=== PATIENT | male | born 1945 | race Caucasian/White ===

== ENCOUNTER 2019-05-11 16:32 | Inpatient (IN) ==
[2019-05-11 17:12] LABS: BASO# 0.02 X1000 (0.0-0.2); BASO% 0.1 % (0.0-0.8); EOS# 0.11 X1000 (0.0-0.7); EOS% 0.7 % (0.0-10.0); HEMATOCRIT 45.6 % (42.0-52.0); HEMOGLOBIN 15.3 g/dL (14.0-18.0); IMM GRAN# 0.03 X1000 (0.0-0.04); IMM GRAN% 0.2 % (0.0-0.5); LYMPH# 1.51 X1000 (1.2-3.4); LYMPH% 9.3 % (20.5-51.1); MCH 32.4 PG (27-31); MCHC 33.6 g/dL (33-37); MCV 96.6 FL (81-99); MONO% 6.8 % (1.7-9.3); MPV 9.6 FL (7.4-10.4); NEUT# 13.44 X1000 (1.4-6.5); NEUT% 82.9 % (42.2-75.2); PLT 268 X1000 (130-400); RBC 4.72 XMIL (4.7-6.1); RDW 12.8 % (11.5-14.5); WBC 16.21 X1000 (4.8-10.8)
[2019-05-11 17:18] LABS: INR 1.11; PROTIME 14.5 Seconds (11.0-16.0)
[2019-05-11 17:19] LABS: PTT 32.2 Seconds (22.3-41.8)
[2019-05-11 17:24] LABS: BANDS 2 % (0-1); LYMPHS 14 % (21-51); SEGS 84 % (42-75)
[2019-05-11 17:33] LABS: AGAP 15; ALB/GLOB RATIO 1.4; ALBUMIN 3.7 g/dL (3.5-5.0); ALKALINE PHOSPHATASE 76 U/L (32-122); BUN 10 mg/dL (8-22); CHLORIDE 97 mmol/L (98-107); CK PROFILE 55 U/L (24-204); COSMO 277; CREATININE 0.7 mg/dL (0.7-1.2); ESTIMATED GFR > 60; GLUCOSE 138 mg/dL (70-104); GOT 16 U/L (10-34); GPT 18 U/L (10-44); POTASSIUM 4.4 mmol/L (3.5-5.1); SODIUM 138 mmol/L (136-145); TCO2 26 mmol/L (25-35); TOTAL BILIRUBIN 0.75 mg/dL (0.20-1.00); TOTAL PROTEIN 6.4 g/dL (6.3-8.3)
[2019-05-11 17:39] LABS: URINE SOURCE CLEAN CATCH
[2019-05-11 17:45] LABS: BILIRUBIN URINE NEGATIVE (NEGATIVE); BLOOD URINE NEGATIVE (NEGATIVE); CLARITY CLEAR (CLEAR); COLOR YELLOW; GLUCOSE URINE NEGATIVE (NEGATIVE); KETONE URINE NEGATIVE (NEGATIVE); LEUKOCYTES URINE NEGATIVE (NEGATIVE); NITRITE URINE NEGATIVE (NEGATIVE); PROTEIN URINE 100 mg/dL (NEGATIVE); SP GRAVITY URINE >= 1.030; URINE EPITHELIAL CELLS <10 /HPF (<10); URINE RBC <10 /HPF (<10); URINE WBC <10 /HPF (<10)
--- NOTE | 2019-05-11 18:17 | Diag Imaging Result Doc PS360 ---
EXAM: CHEST-1 VIEW INDICATION: SOB TECHNIQUE: 2 views COMPARISON: 11/03/2017 FINDINGS: There is suggestion of COPD. There is chronic appearing interstitial thickening bilaterally that is stable. The lungs are grossly clear, otherwise. There is no discrete pleural fluid collection or pneumothorax. The cardiomediastinal silhouette and central vasculature are grossly unremarkable. IMPRESSION: Suggestion of COPD and chronic interstitial thickening that is stable. No definite acute pathology by plain radiograph. Electronically signed by Andrae Pizarro 05/11/2019 6:15 PM
[2019-05-11] MEDS ORDERED: DUONEB (A & A) INH ONE (19:09)
[2019-05-11] MEDS ORDERED: SOLU-MEDROL IV ONE (19:09)
--- NOTE | 2019-05-11 19:29 | PROVIDER DOCUMENTATION ---
HPI-Respiratory General - General Chief Complaint: SEPSIS ALERT - D Stated Complaint: SOB,COPD Time Seen by Provider: 05/11/19 18:38 Source: patient, family Allergies/Adverse Reactions: Patient Allergies Allergy/AdvReac Type Severity Reaction Status Date / Time No Known Allergies Allergy Verified 05/11/19 17:17 Home Medications: Home Medication List Medication Instructions Recorded Confirmed Last Taken Type Alprazolam [Xanax] 1 tab PO PRN PRN 05/11/19 05/11/19 05/11/19 History Amlodipine [Norvasc] 1 tab PO DAILY 05/11/19 05/11/19 05/11/19 History Backus-3 Fatty Acids/Fish Oil [Fish 1 tab PO DAILY 05/11/19 05/11/19 05/11/19 History Oil 1,000 mg Capsule] - History of Present Illness-Resp Nature of Presenting Problem: Patient with background hx of copd/emphesema on home 02 reports cough with worse connie sob of 3 days duration and not responding to usual respiratory medications. he reports no other symptoms Quality of Pain: reports: other (sob) Severity in ED: reports: moderate, severe Onset/Duration: reports: 3 days ago Timing: reports: still present Exposure: reports: unknown cause Cough Quality/Degree: reports: moderate Episode Frequency: chronic episodes Current Respiratory Medication Therapy: Initiated albuterol/atrovent inhale Associated Symptoms: reports: cough, shortness of breath Similar Symptoms Previously?: Yes Recently seen or treated by another doctor?: Yes Review of Systems - Adult - REVIEW OF SYSTEMS - ADULT ROS:: unobtainable per condition Constitutional: reports: no symptoms reported Eyes: reports: no symptoms reported Ears, Nose, Mouth & Throat: reports: no symptoms reported Cardiovascular: reports: no symptoms reported Respiratory: reports: see HPI Gastrointestinal: reports: no symptoms reported Genitourinary: reports: no symptoms reported Musculoskeletal: reports: no symptoms reported Integumentary: reports: no symptoms reported Neurological: reports: no symptoms reported Psychiatric: reports: no symptoms reported Endocrine: reports: no symptoms reported Hematologic/Lymphatic: reports: no symptoms reported Allergic/Immunologic: reports: no symptoms reported Past History - Adult - PAST MEDICAL HISTORY-ADULT Review of Records: reports: Nursing Assessment Review, Medications Reviewed, Social history reviewed & non-contributory. Major Childhood Illnesses: reports: denies history Cardiovascular: reports: denies history Respiratory: reports: denies history Gastrointestinal: reports: denies history Obstetrical/Gynecological: reports: denies history Genitourinary: reports: denies history Musculoskeletal: reports: denies history Neurological: reports: denies history Endocrine/Immune: reports: denies history Other Conditions: reports: denies history - IMMUNIZATION STATUS Childhood Immunizations: See Nurse Assessment Flu Vaccine: See Nurse Assessment - FAMILY HISTORY Family History: reviewed, not pertinent - SOCIAL HISTORY Smoking: cigarettes Substance Use: none/never Alcohol Use Frequency: sober (former use) Physical Exam-General - PHYSICAL EXAM-ADULT Initial Vital Signs Reviewed: Yes - CONSTITUTIONAL General Appearance: mild distress, moderate distress - EYES Eyes: PERRL/EOMI - HEAD, EARS, NOSE, MOUTH & THROAT HENMT: normocephalic/atraumatic - NECK Neck: non-tender, full range of motion, supple - RESPIRATORY Respiratory: chest non-tender, respiratory distress, retractions - CARDIOVASCULAR Cardiovascular: regular rate, rhythm - GASTROINTESTINAL (ABDOMEN) Abdominal Exam: normal bowel sounds, non tender, soft - MUSCULOSKELETAL Back Exam: normal inspection, no CVA tenderness Extremity: non-tender, no pedal edema - SKIN Integumentary: normal color - NEUROLOGIC Neurologic: national secretary II-XII nml as tested - PSYCHIATRIC Psych/Mental Status: oriented x 3 Progress - PLAN OF CARE/RESULTS Progress/Plan/Lab Results: Laboratory Results - last 24 hr 05/11/19 05/11/19 05/11/19 16:52 16:52 16:52 WBC 16.21 H RBC 4.72 Hgb 15.3 Hct 45.6 MCV 96.6 MCH 32.4 H MCHC 33.6 RDW Std Deviation 12.8 Plt Count 268 MPV 9.6 Immature Gran % (Auto) 0.2 Neut % (Auto) 82.9 H Lymph % (Auto) 9.3 L [place] % (Auto) 6.8 Eos % (Auto) 0.7 Baso % (Auto) 0.1 Immature Gran # (Auto) 0.03 Neut # (Auto) 13.44 H Lymph # (Auto) 1.51 [place] # (Auto) 1.10 H Eos # (Auto) 0.11 Baso # (Auto) 0.02 Segmented Neutrophils 84 H Band Neutrophils 2 H Lymphocytes 14 L PT 14.5 INR 1.11 PTT (Actin FS) 32.2 Specimen Type Sample Site pH pCO2 pO2 HCO3 Base Excess Oxyhemoglobin ABG O2 Sat (Calculated) ABG O2 Saturation ABG Carboxyhemoglobin ABG Methemoglobin Bryan Test A-a O2 Difference Total Hemoglobin Lactate Liter Flow Blood Gas Modality FiO2 % Sodium 138 Potassium 4.4 Chloride 97 L Carbon Dioxide 26 Anion Gap 15 BUN 10 Creatinine 0.7 Estimated GFR/1.73 m2 > 60 BUN/Creatinine Ratio 14 Glucose 138 H Calculated Osmolality 277 Calcium 9.0 Total Bilirubin 0.75 AST 16 ALT 18 Alkaline Phosphatase 76 Creatine Kinase 55 Troponin T Mgl-F-Xjjhmfryobe Pept Total Protein 6.4 Albumin 3.7 Globulin 2.7 Albumin/Globulin Ratio 1.4 Plasma Lactate Urine Source Urine Color Urine Clarity Urine pH Ur Specific [place] Urine Protein Urine Ketones Urine Blood Urine Nitrite Urine Bilirubin Urine Urobilinogen Urine Microscopic RBC Urine WBC Urine Microscopic WBC Ur Epithelial Cells Urine Glucose 05/11/19 05/11/19 05/11/19 16:52 16:52 16:52 WBC RBC Hgb Hct MCV MCH MCHC RDW Std Deviation Plt Count MPV Immature Gran % (Auto) Neut % (Auto) Lymph % (Auto) [place] % (Auto) Eos % (Auto) Baso % (Auto) Immature Gran # (Auto) Neut # (Auto) Lymph # (Auto) [place] # (Auto) Eos # (Auto) Baso # (Auto) Segmented Neutrophils Band Neutrophils Lymphocytes PT INR PTT (Actin FS) Specimen Type Sample Site pH pCO2 pO2 HCO3 Base Excess Oxyhemoglobin ABG O2 Sat (Calculated) ABG O2 Saturation ABG Carboxyhemoglobin ABG Methemoglobin Bryan Test A-a O2 Difference Total Hemoglobin Lactate Liter Flow Blood Gas Modality FiO2 % Sodium Potassium Chloride Carbon Dioxide Anion Gap BUN Creatinine Estimated GFR/1.73 m2 BUN/Creatinine Ratio Glucose Calculated Osmolality Calcium Total Bilirubin AST ALT Alkaline Phosphatase Creatine Kinase Troponin T < 0.010 [id number]-Y-Cxywptavvgk Pept 533 H Total Protein Albumin Globulin Albumin/Globulin Ratio Plasma Lactate 1.4 Urine Source Urine Color Urine Clarity Urine pH Ur Specific [place] Urine Protein Urine Ketones Urine Blood Urine Nitrite Urine Bilirubin Urine Urobilinogen Urine Microscopic RBC Urine WBC Urine Microscopic WBC Ur Epithelial Cells Urine Glucose 05/11/19 05/11/19 05/11/19 17:29 19:49 20:10 WBC RBC Hgb Hct MCV MCH MCHC RDW Std Deviation Plt Count MPV Immature Gran % (Auto) Neut % (Auto) Lymph % (Auto) [place] % (Auto) Eos % (Auto) Baso % (Auto) Immature Gran # (Auto) Neut # (Auto) Lymph # (Auto) [place] # (Auto) Eos # (Auto) Baso # (Auto) Segmented Neutrophils Band Neutrophils Lymphocytes PT INR PTT (Actin FS) Specimen Type ARTERIAL Sample Site R RADIAL pH 7.36 pCO2 56 H* pO2 86 HCO3 28.2 H Base Excess 4.4 H Oxyhemoglobin 93.5 L ABG O2 Sat (Calculated) 19.9 ABG O2 Saturation 98.1 ABG Carboxyhemoglobin 4.00 H ABG Methemoglobin 0.8 Bryna Test YES A-a O2 Difference 129.0 Total Hemoglobin 15.1 Lactate 0.80 Liter Flow 5.0 Blood Gas Modality CANNULA FiO2 % 40.0 Sodium Potassium Chloride Carbon Dioxide Anion Gap BUN Creatinine Estimated GFR/1.73 m2 BUN/Creatinine Ratio Glucose Calculated Osmolality Calcium Total Bilirubin AST ALT Alkaline Phosphatase Creatine Kinase Troponin T Gxm-D-Qwvexxjripr Pept Total Protein Albumin Globulin Albumin/Globulin Ratio Plasma Lactate 0.9 Urine Source CLEAN CATCH Urine Color YELLOW Urine Clarity CLEAR Urine pH 6.0 Ur Specific [place] >= 1.030 Urine Protein 100 A Urine Ketones NEGATIVE Urine Blood NEGATIVE Urine Nitrite NEGATIVE Urine Bilirubin NEGATIVE Urine Urobilinogen 2.0 H Urine Microscopic RBC <10 Urine WBC NEGATIVE Urine Microscopic WBC <10 Ur Epithelial Cells <10 Urine Glucose NEGATIVE 05/11/19 22:43 WBC RBC Hgb Hct MCV MCH MCHC RDW Std Deviation Plt Count MPV Immature Gran % (Auto) Neut % (Auto) Lymph % (Auto) [place] % (Auto) Eos % (Auto) Baso % (Auto) Immature Gran # (Auto) Neut # (Auto) Lymph # (Auto) [place] # (Auto) Eos # (Auto) Baso # (Auto) Segmented Neutrophils Band Neutrophils Lymphocytes PT INR PTT (Actin FS) Specimen Type Sample Site pH pCO2 pO2 HCO3 Base Excess Oxyhemoglobin ABG O2 Sat (Calculated) ABG O2 Saturation ABG Carboxyhemoglobin ABG Methemoglobin Bryan Test A-a O2 Difference Total Hemoglobin Lactate Liter Flow Blood Gas Modality FiO2 % Sodium Potassium Chloride Carbon Dioxide Anion Gap BUN Creatinine Estimated GFR/1.73 m2 BUN/Creatinine Ratio Glucose Calculated Osmolality Calcium Total Bilirubin AST ALT Alkaline Phosphatase Creatine Kinase Troponin T Skd-J-Nchqmctqxrj Pept Total Protein Albumin Globulin Albumin/Globulin Ratio Plasma Lactate 0.8 Urine Source Urine Color Urine Clarity Urine pH Ur Specific [place] Urine Protein Urine Ketones Urine Blood Urine Nitrite Urine Bilirubin Urine Urobilinogen Urine Microscopic RBC Urine WBC Urine Microscopic WBC Ur Epithelial Cells Urine Glucose Orders Category Date Time Status Admit - [facility] Routine AdmDCTranf 05/12/19 02:30 Active Activity - Up with Assistance ORDERED Care 05/12/19 02:30 Active Cardiac Monitoring DIRECTED Care 05/11/19 16:39 Completed IV Insertion ORDERED Care 05/11/19 16:39 Completed Intake and Output-Strict ORDERED Care 05/12/19 02:30 Active Notify MD of + Sepsis Screen NOW Care 05/11/19 16:39 Completed Notify Physician As Ordered Care 05/11/19 16:39 Active Vital Signs Order Q 8-HR ASSESS Care 05/12/19 02:30 Active Z-Document. for Tele Applied ORDERED Care 05/12/19 02:30 Completed Heart Healthy Diet Diet 05/12/19 02:30 Active CHEST-1 VIEW [RAD] Stat Exams 05/11/19 16:39 Completed ABG [RESP] Routine Lab 05/11/19 20:10 Completed BASIC METABOLIC PANEL [CHEM] Routine Lab 05/13/19 06:00 Ordered BLOOD CULTURE [BLDCUL] Stat Lab 05/11/19 17:26 Results CBC WITH DIFF [HEME] Routine Lab 05/13/19 06:00 Ordered CBC WITH DIFF [HEME] Stat Lab 05/11/19 16:52 Completed CK PROFILE [SP CHEM] Stat Lab 05/11/19 16:52 Completed COMPREHENSIVE METABOLIC PANEL [CHEM] Stat Lab 05/11/19 16:52 Completed LACTATE, PLASMA [CHEM] Lab 05/11/19 16:52 Completed LACTATE, PLASMA [CHEM] Lab 05/11/19 19:49 Completed LACTATE, PLASMA [CHEM] Lab 05/11/19 22:43 Completed PRO B-NATRIURETIC PEPTIDE Stat Lab 05/11/19 16:52 Completed PROTIME WITH INR [COAG] Stat Lab 05/11/19 16:52 Completed PTT [COAG] Stat Lab 05/11/19 16:52 Completed TROPONIN T Stat Lab 05/11/19 16:52 Completed URINE CULTURE [RM] Routine Lab 05/11/19 17:29 Results Acetaminophen [Tylenol] Med 05/12/19 02:30 Active 650 mg PO Q6H PRN PRN Albuterol 2.5MG/Ipratrop 0.5MG [Duoneb (A & A)] Med 05/11/19 19:09 Discontinued 3 ml INH NOW ONE Albuterol 2.5MG/Ipratrop 0.5MG [Duoneb (A & A)] Med 05/12/19 03:30 Active 3 ml INH RTQ4H Albuterol [Albuterol Neb] Med 05/11/19 20:15 Discontinued 2.5 mg INH NOW ONE Albuterol [Albuterol Neb] Med 05/11/19 22:21 Discontinued 2.5 mg INH NOW ONE Amlodipine [Norvasc] Med 05/12/19 09:00 Active 5 mg PO DAILY CefTRIAXONE [Rocephin] 1 gm Med 05/11/19 22:20 Discontinued 0.9% Sodium Chloride Inj [Ns] 50 ml IV NOW Enoxaparin [Lovenox] Med 05/12/19 02:30 Active 40 mg SUBQ Q24H Levofloxacin 500 mg/D5w [Levaquin 500 mg/D5w] Med 05/12/19 02:30 Active 500 mg in 100 ml IV Q24H Methylprednisolone Sod Succ [Solu-Medrol] Med 05/11/19 19:09 Discontinued 125 mg IV NOW ONE Methylprednisolone Sod Succ [Solu-Medrol] Med 05/12/19 03:00 Active 60 mg IV Q8H Backus-3 Fatty Acids [Fish Oil Concentrate] Med 05/12/19 09:00 Active 1,000 mg PO DAILY Ondansetron [Zofran] Med 05/12/19 02:30 Active 4 mg IV Q4H PRN PRN Aerosol Treatments Routine Ot 05/11/19 19:10 Completed Aerosol Treatments Routine Ot 05/11/19 22:21 Completed Aerosol Treatments Routine Ot 05/12/19 02:30 Completed Aerosol Treatments Stat Ot 05/11/19 19:10 Completed Aerosol Treatments Stat Ot 05/11/19 20:15 Completed Aerosol Treatments Stat Ot 05/11/19 22:21 Completed Aerosol Treatments Stat Ot 05/12/19 02:30 Completed Oxygen Device Stat Ot 05/11/19 16:39 Completed Telemetry [OM.EQ] Routine Oth 05/12/19 02:30 Active Transfer/Admit Order [TRANSFER] Routine Transfer 05/12/19 00:05 Completed Result Diagrams: 05/11/19 16:52 05/11/19 16:52 - REASSESSMENT Reassessment #1 Time Reassessed: 22:30 Status: improving (slihtly improved, wheezing now appreciated after breathing treatments. still tachypniec with tarchycardia and has a high white count. Agrees with admission. Dr Sheets accepts admission) - CONSULTS/PCP/HOSPITALIST Notification #1 *Consult/PCP/Hospitalist*: Dr Sheets Time Discussed: 22:33 Consult Disposition: Admit (Dr Sheets accepts admission) Departure - Departure Date of Disposition Decision: 05/11/19 Time of Disposition Decision: 22:33 DIAGNOSIS: COPD exacerbation Respiratory failure Qualifiers: Chronicity: acute on chronic Respiratory failure complication: hypoxia and hypercapnia Qualified Code(s): J96.21 - Acute and chronic respiratory failure with hypoxia Disposition: ADMITTED INPATIENT 09 Certified Medical Emergency: Emergent Condition: Fair - Critical Care Note This patient required my direct & personal management of CC.: No Attestation - Physician/ MICAH Attestation Patient care was provided by Advanced Practice Provider:: No The physician spent face to face time with patient:: Yes Advanced Practice Provider documentation review:: Supervising physician onsite and consulted in the evaluation and care of this patient. The physician did have a face to face encounter with the patient.
[2019-05-11] MEDS ORDERED: ALBUTEROL NEB INH ONE ×2 (20:15→22:21)
[2019-05-11 20:21] LABS: ALLEN TEST YES; BE 4.4 mmoll (-3.0-3.0); BLOOD TYPE ARTERIAL; HCO3-(ACT) 28.2 mmoll (20.0-26.0); METHB 0.8 % (0.0-1.5); O2(CT) 19.9 mL/dL (15.0-23.0); O2HB 93.5 % (95.0-99.0); PO2(98.6) 86 mmHg (60-100); SAMPLE BLOOD; SAO2 98.1 % (95.0-100.0); THB 15.1 g/dL (11.5-17.4); pH(98.6) 7.36 (7.35-7.45)
[2019-05-11 20:24] LABS: MODALITY CANNULA; PCO2(98.6) 56 mmHg (35-45)
[2019-05-11] MEDS ORDERED: ROCEPHIN 1 GM in NS 50 ML IV ONE (22:20)
[2019-05-12] MEDS ORDERED: TYLENOL PO PRN (02:30)
[2019-05-12] MEDS ORDERED: ZOFRAN IV PRN (02:30)
[2019-05-12] MEDS: LEVAQUIN 500 MG/D5W 500 MG/100 ML IVPB IV SCH (03:07)
[2019-05-12] MEDS: LOVENOX SUBQ SCH (03:09)
[2019-05-12] MEDS: SOLU-MEDROL IV SCH ×4 (03:09→20:02)
[2019-05-12] MEDS: DUONEB (A & A) INH SCH ×6 (03:55→23:26)
--- NOTE | 2019-05-12 05:05 | HISTORY AND PHYSICAL ---
CHIEF COMPLAINT: Shortness of breath x1 week. PRIMARY CARE PROVIDER: [facility]. HISTORY OF PRESENTING ILLNESS: This is a 73-year-old male with a history of COPD, emphysema, on home oxygen, who had presented to the emergency department with a 1-week history of progressive shortness of breath. The patient states that he was having difficulty breathing despite using his inhalers and oxygen. He was seen in the ER. He was in some mild respiratory distress. He was given nebulizer treatment and put on supplemental oxygen. He will require admission for further management. At the time of my examination, he had denied any headache, fever, chills, chest pain, hemoptysis, melena or weight changes, but complained of shortness of breath. PAST MEDICAL HISTORY: Includes COPD, emphysema, on home oxygen, and hypertension. PAST SURGICAL HISTORY: None. ALLERGIES: No known drug allergies. CURRENT MEDICATIONS: Xanax 1 mg p.o. daily, Norvasc 1 tablet p.o. daily. SOCIAL HISTORY: 50+ pack years history of smoking. History of alcohol use in the past. Denies any illicit drug use. FAMILY HISTORY: No history of coronary artery disease. REVIEW OF SYSTEMS: Fourteen point review of system as listed in HPI. Other systems negative. PHYSICAL EXAMINATION: GENERAL: Cooperative, friendly male. He is resting more comfortably now. VITAL SIGNS: Temperature 98.1 degrees, pulse 116, respirations 24, blood pressure 161/72. HEENT: Atraumatic, normocephalic. Extraocular movements intact. PERRLA. NECK: No masses. CHEST: Scattered wheezes. CARDIOVASCULAR: Regular rate and rhythm. ABDOMEN: Soft. Positive bowel sounds. EXTREMITIES: No edema. NEUROLOGIC: He is awake, alert, oriented x3. GENITOURINARY: No bladder distention. SKIN: Warm. LABORATORIES AND STUDIES: WBC 16.21, hemoglobin 15.3, hematocrit 45.6, platelets 268,000. PH 7.36, pCO2 56. Sodium 138, potassium 4.4, chloride 97, CO2 is 26, BUN is 10 glucose 138. Chest x-ray, suggestion of COPD. ASSESSMENT: A 73-year-old male with a history of chronic obstructive pulmonary disease, emphysema and hypertension, who had presented to emergency department with a 1-week history of worsening shortness of breath. He was evaluated in the emergency department and due to his presenting symptoms he will require admission for further management. 1. Acute on chronic respiratory failure. 2. Acute chronic obstructive pulmonary disease exacerbation. 3. Hypertension. PLAN: 1. We will admit patient to medical floor with telemetry. 2. We will continue patient with DuoNebs, IV Solu-Medrol, IV antibiotics. 3. We will monitor blood pressure. Resume antihypertensive agent. 4. Put patient on DVT prophylaxis with Lovenox. 5. We will continue to follow, and reassess and make further recommendation based on patient's clinical course. cc: Tashi Sheets MD MTDD
[2019-05-12] MEDS: FISH OIL CONCENTRATE PO SCH (09:26)
[2019-05-12] MEDS: NORVASC PO SCH (09:26)
[2019-05-12] MEDS ORDERED: PRILOSEC PO ONE (09:35)
[2019-05-12] MEDS: XANAX PO PRN ×2 (09:51→20:58)
--- NOTE | 2019-05-12 13:08 | PROGRESS NOTE ---
DATE: 05/12/2019 Mr. Davies was admitted yesterday or early this morning. A 73-year-old followed at the [facility]. Has a history of COPD, emphysema, on home oxygen. He said that 3 days ago, he started feeling worse but then yesterday, his breathing "closed down". A one week history of progressive shortness of breath, difficulty breathing despite using his inhaler and oxygen. He is still smoking. He had some mild respiratory distress. He was given nebulized treatment and supplemental O2 and required admission for further management. PAST MEDICAL HISTORY: 1. COPD and emphysema, on home oxygen already. 2. Hypertension. ALLERGIES: No known drug allergies. ADMISSION DIAGNOSES: 1. Acute on chronic respiratory failure. 2. Underlying chronic obstructive pulmonary disease, chronic obstructive pulmonary disease exacerbation, and treating for bronchitis and bronchospasm as well. PLAN: 1. Continue his albuterol-ipratropium breathing treatments. He is on Levaquin 500 mg IV q.24 hours. They put on methylprednisone 60 mg IV q.8 and he is on albuterol treatments as well, getting ceftriaxone 1 g. He got 1 g in the emergency room. He is on Levaquin daily. I will put him on some guaifenesin, add a steroid inhaler. He does seem to be improving. 2. Counseled on the importance of stopping smoking. cc: Bryan Ruiz MD
[2019-05-12] MEDS: MUCINEX PO SCH ×2 (13:38→20:01)
[2019-05-12] MEDS: SYMBICORT 80/4.5 MICROGM INHALER INH SCH (19:23)
[2019-05-13] MEDS: DUONEB (A & A) INH SCH ×6 (03:26→23:26)
[2019-05-13] MEDS: SOLU-MEDROL IV SCH ×2 (04:25→17:00)
[2019-05-13] MEDS: LEVAQUIN 500 MG/D5W 500 MG/100 ML IVPB IV SCH (04:25)
[2019-05-13] MEDS: SYMBICORT 80/4.5 MICROGM INHALER INH SCH ×2 (07:41→19:30)
[2019-05-13 08:10] LABS: BASO# 0.01 X1000 (0.0-0.2); BASO% 0.1 % (0.0-0.8); HEMATOCRIT 42.5 % (42.0-52.0); HEMOGLOBIN 14.2 g/dL (14.0-18.0); IMM GRAN# 0.05 X1000 (0.0-0.04); IMM GRAN% 0.4 % (0.0-0.5); LYMPH# 0.73 X1000 (1.2-3.4); LYMPH% 5.4 % (20.5-51.1); MCHC 33.4 g/dL (33-37); MCV 95.7 FL (81-99); MONO# 0.43 X1000 (0.11-0.59); MONO% 3.2 % (1.7-9.3); MPV 9.7 FL (7.4-10.4); NEUT# 12.42 X1000 (1.4-6.5); NEUT% 90.9 % (42.2-75.2); PLT 314 X1000 (130-400); RBC 4.44 XMIL (4.7-6.1); RDW 12.3 % (11.5-14.5); WBC 13.64 X1000 (4.8-10.8)
[2019-05-13 08:21] LABS: AGAP 8; BUN 20 mg/dL (8-22); CHLORIDE 97 mmol/L (98-107); COSMO 275; CREATININE 0.7 mg/dL (0.7-1.2); ESTIMATED GFR > 60; GLUCOSE 165 mg/dL (70-104); POTASSIUM 4.6 mmol/L (3.5-5.1); SODIUM 134 mmol/L (136-145); TCO2 29 mmol/L (25-35)
[2019-05-13] MEDS: PRILOSEC PO SCH (08:43)
[2019-05-13] MEDS: NORVASC PO SCH (08:43)
[2019-05-13] MEDS: MUCINEX PO SCH (08:43)
[2019-05-13] MEDS: LOVENOX SUBQ SCH (08:43)
[2019-05-13] MEDS: FISH OIL CONCENTRATE PO SCH (08:43)
[2019-05-13 08:51] LABS: BANDS 1 % (0-1); LYMPHS 6 % (21-51); MONO 4 % (1-9); SEGS 87 % (42-75)
[2019-05-13] MEDS: XANAX PO PRN ×2 (11:56→19:47)
--- NOTE | 2019-05-13 18:58 | PROGRESS NOTE ---
DATE: 05/13/2019 SUBJECTIVE: The patient seems to be feeling a little bit better compared with yesterday. 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 He is on home oxygen, around 4 L. He has a history of COPD and hypertension. OBJECTIVE: Vital Signs: Temperature 97.5 degrees, pulse 97, respiratory rate 20, blood pressure 129/62, oxygen saturation 97% on 4 L of nasal cannula. HEENT: Head normocephalic. No trauma. PERRLA. Neck: Supple. No JVD. No masses. Central trachea. Chest: Decreased breath sounds globally with prolonged expiratory phase and expiratory wheezing. Some crepitus at the bases. Abdomen: Soft, nontender, nondistended. No hepatosplenomegaly. Extremities: No edema. No clubbing. No cyanosis. Neurological: The patient is alert and oriented x3. No focal deficits. LABORATORY: WBC 13.6, hemoglobin 14.2, hematocrit 42.5, platelets 314,000. sodium 134, potassium 4.6, chloride 97, bicarbonate 29, BUN 20, creatinine 0.7, glucose 165, calcium 9. ASSESSMENT AND PLAN: 1. Acute on chronic hypoxemic and hypercarbic respiratory failure. He seems to be feeling a bit better compared with yesterday. He is still complaining of shortness of breath. He is still having wheezing. I will decrease a little bit the dose of the steroids from 60 q.8 hours to 40 q.8 hours. I will continue with breathing treatment, antibiotics, and oxygen supplementation. Likely this is due to chronic obstructive pulmonary disease exacerbation. 2. Chronic obstructive pulmonary disease exacerbation. As above, I will decrease a little bit the amount of steroids and I will continue to monitor. 3. Hypertension, stable. His blood pressure has been mostly in the 120s to 130s. 4. Hyperglycemia. Likely due to steroids, but I checked his glucose level back in October 2017 and it was elevated as well. I will get a hemoglobin A1c to rule out prediabetes or diabetes. cc: Mitch Cordon MD
[2019-05-14] MEDS: SOLU-MEDROL IV SCH ×3 (02:00→20:27)
[2019-05-14] MEDS: DUONEB (A & A) INH SCH ×6 (03:43→23:33)
[2019-05-14] MEDS: LEVAQUIN 500 MG/D5W 500 MG/100 ML IVPB IV SCH (04:14)
[2019-05-14 07:32] LABS: HEMOGLOBIN A1C 5.9 % (4.8-6.0)
[2019-05-14 07:35] LABS: AGAP 11; ALB/GLOB RATIO 1.1; ALBUMIN 3.3 g/dL (3.5-5.0); ALKALINE PHOSPHATASE 62 U/L (32-122); BUN 21 mg/dL (8-22); CALCIUM 8.5 mg/dL (8.8-10.2); CHLORIDE 97 mmol/L (98-107); COSMO 279; CREATININE 0.7 mg/dL (0.7-1.2); ESTIMATED GFR > 60; GLUCOSE 163 mg/dL (70-104); GOT 17 U/L (10-34); GPT 23 U/L (10-44); POTASSIUM 4.5 mmol/L (3.5-5.1); SODIUM 136 mmol/L (136-145); TCO2 28 mmol/L (25-35); TOTAL BILIRUBIN 0.21 mg/dL (0.20-1.00); TOTAL PROTEIN 6.3 g/dL (6.3-8.3)
[2019-05-14] MEDS: SYMBICORT 80/4.5 MICROGM INHALER INH SCH ×2 (07:40→19:48)
[2019-05-14 07:54] LABS: BASO# 0.01 X1000 (0.0-0.2); BASO% 0.1 % (0.0-0.8); EOS# 0.01 X1000 (0.0-0.7); EOS% 0.1 % (0.0-10.0); HEMATOCRIT 42.7 % (42.0-52.0); HEMOGLOBIN 14.2 g/dL (14.0-18.0); IMM GRAN% 0.7 % (0.0-0.5); LYMPH# 0.73 X1000 (1.2-3.4); LYMPH% 5.1 % (20.5-51.1); MCH 32.2 PG (27-31); MCHC 33.3 g/dL (33-37); MCV 96.8 FL (81-99); MONO# 0.31 X1000 (0.11-0.59); MONO% 2.2 % (1.7-9.3); MPV 9.5 FL (7.4-10.4); NEUT# 13.17 X1000 (1.4-6.5); NEUT% 91.8 % (42.2-75.2); PLT 332 X1000 (130-400); RBC 4.41 XMIL (4.7-6.1); RDW 12.5 % (11.5-14.5); WBC 14.33 X1000 (4.8-10.8)
[2019-05-14] MEDS: MUCINEX PO SCH ×3 (09:30→20:27)
[2019-05-14] MEDS: LOVENOX SUBQ SCH (09:31)
[2019-05-14] MEDS: FISH OIL CONCENTRATE PO SCH (09:31)
[2019-05-14] MEDS: PRILOSEC PO SCH (09:33)
[2019-05-14] MEDS: XANAX PO PRN ×2 (11:00→20:27)
[2019-05-14] MEDS: NORVASC PO SCH (16:41)
--- NOTE | 2019-05-14 19:02 | PROGRESS NOTE ---
DATE: 05/14/2019 SUBJECTIVE: This patient seems to be feeling better. He is on home O2. He has a history of COPD and hypertension. He is still wheezing bilaterally and having shortness of breath, but I believe this patient can be discharged in the next 24 to 48 hours. OBJECTIVE: Vital signs: Temperature 98.7 degrees, pulse 107, respiratory rate 22, blood pressure 148/78. Oxygen saturation of 98% on 4 L of nasal cannula. HEENT: Head normocephalic, no trauma. PERRLA. Neck supple. No JVD. No masses. Central trachea. Chest: Decreased breath sounds globally, with prolonged expiratory phase and expiratory wheezing. Some crepitus at the bases. Abdomen is soft, nontender, nondistended. No hepatosplenomegaly.: Extremities: No edema, no clubbing, no cyanosis. Neurological: The patient is alert. He is oriented x3. No focal deficits. LABORATORY DATA: WBC 14.3, hemoglobin 14.2, hematocrit 42.7, platelets 332,000. Sodium 136, potassium 4.5, chloride 97, bicarbonate 28, BUN 21, creatinine 0.7, glucose 163, calcium 8.5, albumin 3.3. ASSESSMENT AND PLAN: 1. Tbqym-on-pxunsop hypoxemic and hypercarbic respiratory failure. He seems to be feeling better, but he is still complaining of shortness of breath and having wheezing. I have decreased the dose of the steroids from 40 q.8 hours to 40 b.i.d., and tomorrow hopefully I will decrease it even more. Depending on his symptoms, tomorrow probably I will discharge this patient home, but probably it is going to be 24 to 48 hours. 2. Chronic obstructive pulmonary disease exacerbation as above. I will decrease a little bit the amount of steroids and I will continue to monitor. 3. Bronchitis. He has been coughing up some phlegm that is green. He does not have any infiltrates in his lungs. 4. Hyperglycemia, likely due to steroids. His hemoglobin A1c is 5.9. cc: Mitch Cordon MD
[2019-05-15] MEDS: DUONEB (A & A) INH SCH ×6 (03:47→23:14)
[2019-05-15] MEDS: LEVAQUIN 500 MG/D5W 500 MG/100 ML IVPB IV SCH (04:56)
[2019-05-15] MEDS: PRILOSEC PO SCH (06:01)
[2019-05-15 07:28] LABS: BASO# 0.04 X1000 (0.0-0.2); BASO% 0.3 % (0.0-0.8); HEMATOCRIT 43.2 % (42.0-52.0); HEMOGLOBIN 14.2 g/dL (14.0-18.0); IMM GRAN# 0.41 X1000 (0.0-0.04); IMM GRAN% 3.3 % (0.0-0.5); LYMPH# 0.91 X1000 (1.2-3.4); LYMPH% 7.4 % (20.5-51.1); MCH 31.9 PG (27-31); MCHC 32.9 g/dL (33-37); MCV 97.1 FL (81-99); MONO% 5.7 % (1.7-9.3); MPV 9.4 FL (7.4-10.4); NEUT# 10.23 X1000 (1.4-6.5); NEUT% 83.3 % (42.2-75.2); PLT 324 X1000 (130-400); RBC 4.45 XMIL (4.7-6.1); RDW 12.6 % (11.5-14.5); WBC 12.29 X1000 (4.8-10.8)
[2019-05-15 07:43] LABS: AGAP 9; BUN 24 mg/dL (8-22); CHLORIDE 97 mmol/L (98-107); COSMO 277; CREATININE 0.8 mg/dL (0.7-1.2); ESTIMATED GFR > 60; GLUCOSE 148 mg/dL (70-104); POTASSIUM 4.6 mmol/L (3.5-5.1); SODIUM 135 mmol/L (136-145); TCO2 29 mmol/L (25-35)
[2019-05-15 07:54] LABS: LYMPHS 9 % (21-51); MONO 5 % (1-9); NRBC 1 % (0-0); SEGS 82 % (42-75)
[2019-05-15] MEDS: SYMBICORT 80/4.5 MICROGM INHALER INH SCH ×2 (07:54→19:49)
[2019-05-15] MEDS: LOVENOX SUBQ SCH (09:32)
[2019-05-15] MEDS: XANAX PO PRN ×3 (09:33→17:32)
[2019-05-15] MEDS: FISH OIL CONCENTRATE PO SCH (09:33)
[2019-05-15] MEDS: MUCINEX PO SCH ×2 (09:33→20:43)
[2019-05-15] MEDS: NORVASC PO SCH (09:33)
[2019-05-15] MEDS: SOLU-MEDROL IV SCH ×2 (09:33→20:43)
--- NOTE | 2019-05-15 13:57 | PROGRESS NOTE ---
DATE: 05/15/2019 SUBJECTIVE: The patient seems to be feeling better. I do believe I want to be able to discharge him tomorrow. I will continue with the same management for now. I will continue with steroids, breathing treatment and antibiotics. OBJECTIVE: Vital Signs: Temperature 98 degrees, pulse 110, respiratory rate 16, blood pressure 139/84, oxygen saturation 92 on 4 L of nasal cannula. HEENT: Head normocephalic, no trauma. PERRLA. Neck: Supple. No JVD. No masses. Central trachea. Chest: Decreased breath sounds globally with prolonged expiratory phase and faint end-expiratory wheezing. Some crepitus at the bases. Abdomen: Soft, nontender, nondistended. No hepatosplenomegaly. Extremities: No edema, no clubbing, no cyanosis. Neurological: The patient is alert. He is oriented x3. No focal deficits. LABORATORY DATA: WBC 12.2, hemoglobin 14.2, hematocrit 43.2, platelet 324,000. Sodium 135, potassium 4.6, chloride 97, bicarbonate 29, BUN 24, creatinine 0.8, glucose 148, calcium 9. ASSESSMENT AND PLAN: 1. Acute on chronic hypoxemic and hypercarbic respiratory failure. He seems to be feeling better. I will continue with the same management for now. Tomorrow I will switch the steroids to p.o. and hopefully I want to be able to discharge him. 2. Chronic obstructive pulmonary disease exacerbation, as above. 3. Bronchitis. Continue with antibiotics, he has been coughing up green phlegm. 4. Hyperglycemia due to steroids. Hemoglobin A1c 5.9. cc: Mitch Cordon MD
[2019-05-16] MEDS: DUONEB (A & A) INH SCH ×4 (03:15→15:59)
[2019-05-16] MEDS: PRILOSEC PO SCH (06:16)
[2019-05-16] MEDS: LEVAQUIN 500 MG/D5W 500 MG/100 ML IVPB IV SCH (06:16)
[2019-05-16 07:07] LABS: BASO# 0.06 X1000 (0.0-0.2); BASO% 0.5 % (0.0-0.8); EOS# 0.05 X1000 (0.0-0.7); EOS% 0.4 % (0.0-10.0); HEMATOCRIT 44.2 % (42.0-52.0); HEMOGLOBIN 14.9 g/dL (14.0-18.0); IMM GRAN# 0.59 X1000 (0.0-0.04); IMM GRAN% 4.8 % (0.0-0.5); LYMPH# 1.17 X1000 (1.2-3.4); LYMPH% 9.5 % (20.5-51.1); MCH 32.4 PG (27-31); MCHC 33.7 g/dL (33-37); MCV 96.1 FL (81-99); MONO# 0.67 X1000 (0.11-0.59); MONO% 5.5 % (1.7-9.3); MPV 9.5 FL (7.4-10.4); NEUT# 9.74 X1000 (1.4-6.5); NEUT% 79.3 % (42.2-75.2); PLT 335 X1000 (130-400); RDW 12.6 % (11.5-14.5); WBC 12.28 X1000 (4.8-10.8)
[2019-05-16 07:27] LABS: AGAP 10; BUN 23 mg/dL (8-22); CALCIUM 9.3 mg/dL (8.8-10.2); CHLORIDE 94 mmol/L (98-107); COSMO 274; CREATININE 0.8 mg/dL (0.7-1.2); ESTIMATED GFR > 60; GLUCOSE 142 mg/dL (70-104); POTASSIUM 5.1 mmol/L (3.5-5.1); SODIUM 134 mmol/L (136-145); TCO2 30 mmol/L (25-35)
[2019-05-16 08:22] LABS: EOS 1 % (1-10); LYMPHS 8 % (21-51); MONO 7 % (1-9); SEGS 78 % (42-75)
[2019-05-16 08:24] LABS: ANISOCYTOSIS 1+; POLYCHROM 1+
[2019-05-16] MEDS: SYMBICORT 80/4.5 MICROGM INHALER INH SCH (08:50)
[2019-05-16] MEDS: NORVASC PO SCH (09:02)
[2019-05-16] MEDS: LOVENOX SUBQ SCH (09:02)
[2019-05-16] MEDS: FISH OIL CONCENTRATE PO SCH (09:02)
[2019-05-16] MEDS: MUCINEX PO SCH (09:02)
[2019-05-16] MEDS: XANAX PO PRN (09:02)
[2019-05-16] MEDS: SOLU-MEDROL IV SCH (09:04)
--- NOTE | 2019-05-16 10:53 | DISCHARGE SUMMARY ---
ADMISSION DATE: 05/12/2019 DISCHARGE DATE: ADMISSION DIAGNOSES: 1. Acute on chronic respiratory failure. 2. Acute on chronic obstructive pulmonary disease exacerbation. 3. Hypertension. DISCHARGE DIAGNOSES: 1. Acute on chronic hypoxemic and hypercarbic respiratory failure, improving. 2. Chronic obstructive pulmonary disease exacerbation, resolved. 3. Bronchitis. 4. Hyperglycemia with a hemoglobin A1c 5.9. DIAGNOSTICS: 1. Chest x-ray revealed chronic obstructive pulmonary disease and chronic interstitial thickening that is stable. No definite acute pathology 2. Blood cultures revealed no growth after 48 hours. 3. Urine culture revealed no growth after 48 hours. HOSPITAL COURSE: Mr. Davies presented to the emergency room complaining of shortness of breath x1 week. He was found to be in hypercarbic hypercapnic respiratory failure for which he was treated with supplemental oxygen, DuoNeb, steroids to taper. Thankfully, he has improved. He was found to have bronchitis with green phlegm for which he has received Levaquin and Rocephin. During the hospitalization, blood sugars have been 130 to 165. It is felt this is steroid induced. He is not diabetic. He does have a hemoglobin A1c of 5.9. Thankfully today, lungs are clear. He reports feeling stronger and breathing better. DISCHARGE VITAL SIGNS: Blood pressure is 131/73 with a heart rate of 78, respirations 18, temperature 98.4 degrees oral, with O2 saturations staying 96 to 99 on 3 L nasal cannula. DISCHARGE PHYSICAL EXAMINATION: Cardiovascular: Regular rate and rhythm. S1 and S2 appreciated. He has no lower extremity edema. Calves are nontender with peripheral pulses palpable x4 extremities. Pulmonary: Breath sounds are diminished throughout. Chest rises and falls with symmetric respiration. Chest wall is nontender to palpation. Gastrointestinal: Abdomen is soft, nontender, nondistended. Bowel sounds in all 4 quadrants. Neurologic: He is alert and oriented x3. Skin is warm and dry. DISCHARGE MEDICATIONS: 1. Spiriva inhaler 2 puffs daily. 2. Medrol Dosepak take as directed. 3. Levaquin 500 mg p.o. daily x4 days. 4. Mucinex 1200 mg q.12 hours. 5. Xanax 1 mg p.o. p.r.n. 6. Ventolin inhaler 2 puffs q.6 hours p.r.n. wheezing. 7. Fish oil 1 p.o. daily. 8. Amlodipine 5 mg p.o. daily. FOLLOW-UP INSTRUCTIONS: Primary care physician at the [facility] in 1 week. He needs to call to be seen sooner or return to the emergency room for any syncope, dizziness, chest pain, palpitations, increasing shortness of breath, PND, orthopnea, any nausea, vomiting, diarrhea, constipation, black or bloody vomitus or stools, temperature greater than 101 or for any questions or concerns that he may have. DISPOSITION: He is being discharged home in stable condition with family members. TIME SPENT: This is a greater than 30 minute discharge. Dictated by OTIS Galeas for Mitch Cordon MD cc: OTIS Galeas MD
[2019-05-16 12:57] VITALS: BP 146/93
== END 2019-05-16 16:04 | disposition home or self-care (01) | DRG 189 ==
LOC: ED 16:32 → SUATTDRO 05-12 02:17 → 3N 05-12 02:17
PROVIDERS: ATTEND Internal Medicine

== ENCOUNTER 2019-07-08 11:42 | Observation (INO) ==
[2019-07-08] MEDS ORDERED: DUONEB (A & A) INH ONE (12:21)
[2019-07-08] MEDS ORDERED: SOLU-MEDROL IV ONE (12:21)
--- NOTE | 2019-07-08 12:30 | Diag Imaging Result Doc PS360 ---
CHEST-1 VIEW - 07/08/2019 INDICATION: SOB COMPARISON: 05/11/2019 FINDINGS: There is probable COPD. There is some linear scarring in the lung bases. No infiltrates or edema. No pneumothorax or pleural effusion. Heart size is normal. IMPRESSION: COPD with pulmonary scarring. No acute process. Electronically signed by Henri Estrada 07/08/2019 12:28 PM
[2019-07-08 13:28] LABS: URINE SOURCE CLEAN CATCH
[2019-07-08] MEDS ORDERED: NORCO-5 PO ONE (13:33)
[2019-07-08 13:36] LABS: BASO# 0.08 X1000 (0.0-0.2); BASO% 1.1 % (0.0-0.8); EOS# 0.13 X1000 (0.0-0.7); EOS% 1.7 % (0.0-10.0); HEMATOCRIT 47.3 % (42.0-52.0); HEMOGLOBIN 16.5 g/dL (14.0-18.0); IMM GRAN# 0.02 X1000 (0.0-0.04); IMM GRAN% 0.3 % (0.0-0.5); LYMPH# 1.95 X1000 (1.2-3.4); LYMPH% 26.1 % (20.5-51.1); MCH 32.7 PG (27-31); MCHC 34.9 g/dL (33-37); MCV 93.8 FL (81-99); MONO# 0.61 X1000 (0.11-0.59); MONO% 8.2 % (1.7-9.3); NEUT# 4.69 X1000 (1.4-6.5); NEUT% 62.6 % (42.2-75.2); PLT 347 X1000 (130-400); RBC 5.04 XMIL (4.7-6.1); RDW 13.1 % (11.5-14.5); WBC 7.48 X1000 (4.8-10.8)
[2019-07-08 13:37] LABS: BILIRUBIN URINE NEGATIVE (NEGATIVE); BLOOD URINE NEGATIVE (NEGATIVE); COLOR YELLOW; GLUCOSE URINE NEGATIVE (NEGATIVE); KETONE URINE NEGATIVE (NEGATIVE); LEUKOCYTES URINE NEGATIVE (NEGATIVE); NITRITE URINE NEGATIVE (NEGATIVE); PROTEIN URINE TRACE mg/dL (NEGATIVE); TURBIDITY URINE CLEAR (CLEAR); UROBILINOGEN URINE 4 mg/dL (NORMAL)
[2019-07-08 13:38] LABS: UR EPITHELIAL CELLS <10 /HPF (<10); URINE BACTERIA NEGATIVE /HPF; URINE RBC <10 /HPF (<10); URINE WBC <10 /HPF (<10)
[2019-07-08 13:44] LABS: INR 0.98
[2019-07-08 13:45] LABS: PTT 28.3 Seconds (22.3-41.8)
--- NOTE | 2019-07-08 13:54 | EKG Report ---
Test Performed on : 07/08/2019 11:51:46 AM Test Reason : SOB/COPD Blood Pressure : / mmHG Vent. Rate : 103 BPM Atrial Rate : 103 BPM P-R Int : 162 ms QRS Dur : 078 ms QT Int : 348 ms P-R-T Axes : 097 061 077 degrees QTc Int : 455 ms Sinus tachycardia. with premature atrial complexes. Nonspecific ST and T wave abnormality Abnormal ECG When compared with ECG of 03-NOV-2017 12:21, No significant change was found Unconfirmed Result
[2019-07-08 13:57] LABS: AGAP 11; ALB/GLOB RATIO 1.6; ALBUMIN 3.8 g/dL (3.5-5.0); ALKALINE PHOSPHATASE 62 U/L (32-122); BUN 11 mg/dL (8-22); CALCIUM 9.2 mg/dL (8.8-10.2); CHLORIDE 91 mmol/L (98-107); CK PROFILE 67 U/L (24-204); COSMO 270; CREATININE 0.7 mg/dL (0.7-1.2); ESTIMATED GFR > 60; GLUCOSE 111 mg/dL (70-104); GOT 20 U/L (10-34); GPT 13 U/L (10-44); POTASSIUM 3.7 mmol/L (3.5-5.1); SODIUM 135 mmol/L (136-145); TCO2 33 mmol/L (25-35); TOTAL BILIRUBIN 0.58 mg/dL (0.20-1.00); TOTAL PROTEIN 6.2 g/dL (6.3-8.3)
[2019-07-08] MEDS ORDERED: DUONEB (A & A) INH PRN (15:31)
[2019-07-08] MEDS ORDERED: ROBITUSSIN-AC PO PRN (15:43)
[2019-07-08] MEDS ORDERED: TORADOL IV SCH (15:45)
[2019-07-08] MEDS ORDERED: MORPHINE IV PRN (18:49)
[2019-07-08] MEDS: DUONEB (A & A) INH SCH ×2 (20:07→23:37)
--- NOTE | 2019-07-08 20:12 | HISTORY AND PHYSICAL ---
ADDENDUM: I have seen and examined Mr. Davies today. Mr. Davies presents to emergency room because of severe shortness of breath and cough associated with pain to his back. Upon presentation he was evaluated was found to be in hypoxemic failure occasionally with O2 saturation down to the 91, tachycardic and slightly tachypneic. He received emergent treatment in the ER for the COPD exacerbation, however this did not improve so he has been admitted for COPD exacerbation. OBJECTIVE: His current vitals blood pressure is 137/74, pulse of 109, respiration is 20, temperature 97.5 degrees, patient is saturating 97% on 4 L.General: Mr. Davies 73-year-old elderly gentleman he is in bed. He is in mild respiratory distress. Mucosa is pink and moist. Anicteric. Acyanotic. Neck: Supple. Chest: Air entry is bilateral reduced. The patient has diffuse and expiratory wheezing in both lung mccall. Patient has a barrel shape chest. Cardiovascular: Regular rate and rhythm. Abdomen: Soft. Extremities: No pedal edema. POULTRY SEXER: Patient is awake, alert and oriented. Musculoskeletal: Minimum tenderness to the entire mid back but no tenderness over the spinal processes. LABORATORY DATA: CBC is unremarkable, chemistry is also unremarkable except for mild hyponatremia. Blood cultures are pending. ASSESSMENT: 1. Acute hypoxemic respiratory failure secondary to chronic obstructive pulmonary disease exacerbation. 2. Advanced chronic obstructive pulmonary disease with moderate to severe exacerbation. 3. Back pain most likely related to musculoskeletal pain from excessive cough. 4. Tobacco use and abuse prior to hospitalization. PLAN: We are going to continue addressing Mr. Patels pains needs, I started him on antibiotics, will continue with the steroids, nebulizations. Will get a CAT scan of the lungs also of the thorax to rule out any other potential causes of his back pain. Will reevaluate Mr. Davies tomorrow morning and make further recommendations. Please refer to the details of the history and physical which has been dictated by the GEOMETRICIAN. I reviewed and discussed the plan with her. Have also reviewed my findings and plan discussed the plan with Mr. Davies. Mr. Davies is currently DNR level 1. cc: MD CHRISTA Stout
[2019-07-08] MEDS: TAMIFLU PO SCH (21:18)
[2019-07-08] MEDS: MAXIPIME 1 GM in NS 50 ML IV SCH (21:18)
[2019-07-08] MEDS: XANAX PO SCH (21:18)
--- NOTE | 2019-07-08 21:29 | Diag Imaging Result Doc PS360 ---
CT ANGIOGRM PULMONARY ARTERIES - 07/08/2019 INDICATION: Severe dyspnea TECHNIQUE: Axial CT images were obtained after administering intravenous contrast. Coronal MIP images were generated. COMPARISON: None FINDINGS: There is no pulmonary embolism. Heart and great vessels are normal. No adenopathy. Upper abdominal images are grossly normal. There is advanced COPD. There is mild interstitial pulmonary scarring in the lung bases. There is a high-grade compression fracture in the midthoracic spine, at T8. There is a lesser compression fracture at T5. IMPRESSION: Negative for pulmonary and liver. Severe COPD with pulmonary scarring. This exam was performed using automated exposure control, adjustment of mA or kV according to patient size, and/or use of iterative reconstruction technique Electronically signed by Henri Estrada 07/08/2019 9:27 PM
--- NOTE | 2019-07-08 21:51 | HISTORY AND PHYSICAL ---
CHIEF COMPLAINT: Shortness of breath, back pain. HISTORY OF PRESENT ILLNESS: This is a 73-year-old gentleman with a history of COPD and emphysema, on 5 L of home O2, as well as hypertension. He presents to the emergency room complaining of increasing shortness of breath, along with upper back pain. He states that the symptoms started about a week and a half ago. At first he was able to rest and they would resolve back to his normal breathing state, but over the last 2 to 3 days it is taking longer for him to recuperate. He started having upper back pain when he was coughing and taking deep breaths; therefore, he came to the emergency room. Chest x-ray revealed COPD with pulmonary scarring, with no acute process. PAST MEDICAL HISTORY: 1. COPD, on 5 L home O2. 2. Hypertension. PAST SURGICAL HISTORY: Denies. SOCIAL HISTORY: He lives with a girlfriend. He denies any alcohol use or illicit drug use. He does smoke about half a pack a day. ALLERGIES: No known drug allergies. HOME MEDICATIONS: A list will be obtained by the nursing staff, and once verified we will review and restart as appropriate. REVIEW OF SYSTEMS: Discussed with the patient, with pertinent positives stated in the HPI. He denied any syncope or dizziness, any chest pain or palpitations, a productive cough, any fevers or chills, any nausea, vomiting, diarrhea, constipation, black or bloody vomitus or stools, or hematuria, dysuria, frequency or urgency. PHYSICAL EXAMINATION: GENERAL: This is a 73-year-old gentleman who is sitting up in the stretcher in the emergency room in mild respiratory distress. VITAL SIGNS: Blood pressure is 139/83 with a heart rate of 87, respirations are 21, temperature is 97.8 degrees, with O2 saturation 100% on 5 L nasal cannula. HEENT: Eyes: Pupils are noted with left pupil irregular shape. He states that is from . Right is 3 and is reactive. Sclerae anicteric. Mucous membranes are dry. NECK: Supple, with trachea midline. CARDIOVASCULAR: Regular rate and rhythm. S1 and S2 appreciated. He has no lower extremity edema. Calves are nontender. PULMONARY: Breath sounds with inspiratory and expiratory wheezes, and rhonchi scattered throughout. Chest rises and falls symmetric with respiration. GASTROINTESTINAL: Abdomen is soft, nontender, nondistended. Bowel sounds in all 4 quadrants. NEUROLOGIC: He is alert and oriented x3. SKIN: Warm and dry. LABORATORY DATA: WBC is 7.4 with hemoglobin 16.5, hematocrit 47.3, and platelets 347,000. Sodium 135, potassium 3.7, BUN 11, creatinine 0.7 with a glucose of 111. Urinalysis is essentially negative. Blood cultures are pending. DIAGNOSTIC DATA: Chest x-ray revealed COPD with pulmonary scarring. ASSESSMENT: 1. Chronic obstructive pulmonary disease acute exacerbation. 2. Upper back pain, most likely musculoskeletal. 3. History of hypertension. PLAN: The patient will be admitted to the hospital. He will be placed on telemetry. We will give supplemental oxygen, DuoNeb q.4 hours with q.2 hours p.r.n., with steroids to taper. Antibiotic coverage of cefepime, and further antibiotics will be culture-driven. We will identify his home medications and continue as appropriate. Check a CBC and CMP in the morning. In regards to his upper back pain, it is present with movement, cough and deep breath. We will start Toradol and monitor. Plan was discussed with Dr. Layne. Further treatments pending his evaluation. Dictated by OTIS Galeas for Edwin Layne MD cc: OTIS Galeas MD
[2019-07-08] MEDS: SOLU-MEDROL IV SCH (22:45)
[2019-07-09] MEDS: DUONEB (A & A) INH SCH ×4 (03:42→15:32)
[2019-07-09] MEDS: MAXIPIME 1 GM in NS 50 ML IV SCH ×2 (03:52→12:41)
[2019-07-09] MEDS: NORCO-10 PO PRN ×2 (03:59→10:28)
[2019-07-09] MEDS: XANAX PO SCH ×2 (06:08→12:40)
[2019-07-09] MEDS: SOLU-MEDROL IV SCH ×2 (06:08→17:11)
[2019-07-09 08:11] LABS: HEMATOCRIT 48.3 % (42.0-52.0); HEMOGLOBIN 16.6 g/dL (14.0-18.0); LYMPH# 0.92 X1000 (1.2-3.4); LYMPH% 11.3 % (20.5-51.1); MCH 31.8 PG (27-31); MCHC 34.4 g/dL (33-37); MCV 92.5 FL (81-99); MONO% 1.2 % (1.7-9.3); MPV 9.2 FL (7.4-10.4); NEUT# 7.11 X1000 (1.4-6.5); NEUT% 87.5 % (42.2-75.2); PLT 378 X1000 (130-400); RBC 5.22 XMIL (4.7-6.1); RDW 12.6 % (11.5-14.5); WBC 8.13 X1000 (4.8-10.8)
[2019-07-09 08:26] LABS: EOS 2 % (1-10); LYMPHS 8 % (21-51); SEGS 90 % (42-75)
[2019-07-09 08:41] LABS: AGAP 12; ALB/GLOB RATIO 1.3; ALBUMIN 3.9 g/dL (3.5-5.0); ALKALINE PHOSPHATASE 63 U/L (32-122); BUN 12 mg/dL (8-22); CALCIUM 9.8 mg/dL (8.8-10.2); CHLORIDE 88 mmol/L (98-107); COSMO 268; CREATININE 0.7 mg/dL (0.7-1.2); ESTIMATED GFR > 60; GLUCOSE 159 mg/dL (70-104); GOT 17 U/L (10-34); GPT 13 U/L (10-44); POTASSIUM 3.1 mmol/L (3.5-5.1); SODIUM 132 mmol/L (136-145); TCO2 32 mmol/L (25-35); TOTAL BILIRUBIN 0.68 mg/dL (0.20-1.00); TOTAL PROTEIN 6.9 g/dL (6.3-8.3)
[2019-07-09] MEDS ORDERED: KLOR-CON PO ONE (08:54)
[2019-07-09] MEDS ORDERED: FISH OIL CONCENTRATE PO SCH (09:00)
[2019-07-09] MEDS ORDERED: NORVASC PO SCH (09:00)
[2019-07-09] MEDS: TAMIFLU PO SCH (10:14)
[2019-07-09 15:59] VITALS: BP 127/80
[2019-07-09] MEDS ORDERED: PEPCID PO ONE (16:35)
[2019-07-09] MEDS ORDERED: FLU VACCINE IM ONE (17:12)
--- NOTE | 2019-07-10 14:52 | DISCHARGE SUMMARY ---
ADMISSION DATE: 07/08/2019 DISCHARGE DATE: 07/09/2019 DISPOSITION: Home with hospice ([facility]). CONSULTATION DURING THIS ADMISSION: None. INVASIVE PROCEDURES DONE DURING THIS ADMISSION: None. IMAGING STUDIES OF SIGNIFICANCE: 1. A chest x-ray did show COPD with pulmonary scarring. 2. A CTA of the lungs showed no evidence of pulmonary emboli. There is severe COPD with pulmonary scarring. There is a lesser compression fracture of the T5. There is a high-grade compression fracture in the mid thoracic spine at T8. ADMISSION DIAGNOSES: 1. Chronic obstructive pulmonary disease with exacerbation. 2. Upper back pain. 3. History of hypertension. DIAGNOSES AT THE TIME OF DISCHARGE: 1. Acute hypoxemic respiratory failure secondary to chronic obstructive pulmonary disease exacerbation. 2. Advanced severe chronic obstructive pulmonary disease with moderate to severe exacerbation. 3. Thoracic pain, CAT scan revealing a high-grade compression fracture in the mid thoracic spine at T8. There is also a lesser compression fracture of the T5. 4. Tobacco use and abuse prior to hospitalization. DISCHARGE MEDICATIONS: 1. Xanax 1 mg 3 times per day. 2. Amlodipine 5 mg p.o. daily. 3. Ventolin inhaler. 4. Spiriva. 5. [place]. 6. 75 mg b.i.d. 7. Prednisone 20 mg p.o. daily. 8. Amoxiclav 875 p.o. daily. PRESENTING COMPLAINT: Shortness of breath, back pain. HISTORY OF PRESENT COMPLAINT: Mr. Davies is a 73-year-old gentleman who has a history of COPD, on home 2 oxygen of 5 L, presented to the emergency department because of shortness of breath and back pain. Upon presentation, he was evaluated. Initial x-ray only showed COPD changes. He was initially admitted because of COPD exacerbation and back pain which was initially theorized to be related to his cough. During the hospital course Mr. Davies was started on IV antibiotics, steroids, and bronchodilation therapy. A CT scan of the chest was done which did not show any PE. However, it did make mention of a thoracic compression fracture which we think now that it is causing the pain. Of note Mr. Davies does not have any neurological deficit. He is able to move around without any difficulty. He is urinating without difficulty. Mr. Davies himself suggest that he wants hospice to evaluate him. /girlfriend was at the bedside at the time of the encounter. Palliative subsequently evaluated him and a decision was made to consult [facility]. They came to evaluate him. They have everything set up and Mr. Davies is going to be discharged home with [facility]. Mr. Davies is also made aware about the fracture at his back and he has been advised to follow up with Neurosurgery if he continues to have pain. All the discharge instructions have been discussed with him and he voiced understanding. TIME SPENT FOR DISCHARGE: Thirty-eight minutes. cc: Edwin Layne MD [facility]
--- NOTE | 2019-07-14 11:13 | PROVIDER DOCUMENTATION ---
This chart was entered by Kourtney Callhaan Scribe, acting as scribe for Donaldo Roach MD. HPI-Respiratory General - General Chief Complaint: SEPSIS ALERT - D Stated Complaint: SOB,COPD,BACK PAIN Time Seen by Provider: 07/08/19 12:16 Source: patient Allergies/Adverse Reactions: Patient Allergies Allergy/AdvReac Type Severity Reaction Status Date / Time No Known Allergies Allergy Verified 05/11/19 17:17 Home Medications: Home Medication List Medication Instructions Recorded Confirmed Last Taken Type Alprazolam [Xanax] 1 tab PO TID 05/11/19 07/08/19 07/08/19 History Amlodipine [Norvasc] 1 tab PO DAILY 05/11/19 07/08/19 07/08/19 History [place]-3 Fatty Acids/Fish Oil [Fish 2 tab PO DAILY 05/11/19 07/08/19 07/08/19 History Oil 1,000 mg Capsule] Albuterol Sulfate Inhaler 2 puff INH Q6H PRN PRN #1 inhaler 05/16/19 07/08/19 07/08/19 Rx [Ventolin Hfa] Tiotropium [place] Inhaler 2 puff INH DAILY #1 inhaler 05/16/19 07/08/19 Rx [Spiriva] Amoxicillin/Pot Clavulanate 875 mg PO Q12HR #10 tab 07/09/19 Unknown Rx [Augmentin] Hydrocodone/APAP 10 mg/325 mg 1 ea PO Q4H PRN PRN #30 tab 07/09/19 Unknown Rx [Kite-10] Oseltamivir [Tamiflu] 75 mg PO BID #4 cap 07/09/19 Unknown Rx Prednisone 20 mg PO DAILY #5 tab 07/09/19 Unknown Rx - History of Present Illness-Resp Nature of Presenting Problem: Patient is a 73 year old male who presents with shortness of breath. States back pain with shortness of breath. Reports symptoms have been present for 1.5 weeks. History of COPD. Quality of Pain: reports: aching Severity in ED: reports: mild Onset/Duration: reports: other (1.5 weeks) Timing: reports: still present, getting worse Associated Symptoms: reports: shortness of breath, other (back pain) Similar Symptoms Previously?: Yes Recently seen or treated by another doctor?: No Review of Systems - Adult - REVIEW OF SYSTEMS - ADULT ROS:: limited per condition Constitutional: reports: no symptoms reported Eyes: reports: no symptoms reported Ears, Nose, Mouth & Throat: reports: no symptoms reported Cardiovascular: reports: no symptoms reported Respiratory: reports: see HPI, shortness of breath Gastrointestinal: reports: no symptoms reported Genitourinary: reports: no symptoms reported Musculoskeletal: reports: see HPI, back pain Integumentary: reports: no symptoms reported Neurological: reports: no symptoms reported Psychiatric: reports: no symptoms reported Endocrine: reports: no symptoms reported Hematologic/Lymphatic: reports: no symptoms reported Allergic/Immunologic: reports: no symptoms reported All Other Systems: Reviewed and Negative Past History - Adult - PAST MEDICAL HISTORY-ADULT Review of Records: reports: Old Records Reviewed, Nursing Assessment Review, Medications Reviewed, Social history reviewed & non-contributory. Major Childhood Illnesses: reports: denies history Cardiovascular: reports: HTN, hyperlipidemia Respiratory: reports: COPD Gastrointestinal: reports: denies history Obstetrical/Gynecological: reports: denies history Genitourinary: reports: denies history Musculoskeletal: reports: denies history Neurological: reports: denies history Endocrine/Immune: reports: denies history Other Conditions: reports: denies history - PRIOR SURGERIES/PROCEDURES Surgical/Procedure History: reports: reviewed, not pertinent - IMMUNIZATION STATUS Childhood Immunizations: See Nurse Assessment Flu Vaccine: See Nurse Assessment - FAMILY HISTORY Family History: reviewed, not pertinent - SOCIAL HISTORY Smoking: cigarettes, less than 1 pack/day Provider spent 3-5 mins advising pt. on dangers of tobacco.: Discussed manners to quit use, and f/u contacts for add'l counseling. Substance Use: alcohol Alcohol Use Frequency: occasionally Physical Exam-General - PHYSICAL EXAM-ADULT Initial Vital Signs Reviewed: Yes - CONSTITUTIONAL General Appearance: appears well, alert, moderate distress - RESPIRATORY Respiratory: chest non-tender, respiratory distress (moderate), increased rate, other (absent breath sounds bilaterally) - CARDIOVASCULAR Cardiovascular: regular rate, rhythm, no gallop, no murmur - SKIN Integumentary: normal color, normal turgor, warm/dry - NEUROLOGIC Neurologic: grossly normal - PSYCHIATRIC Psych/Mental Status: normal mood/affect, oriented x 3 - HEART Score HEART Score: History: Slightly Suspicious HEART Score: ECG: Non-Specific Repolarization Disturbance/LBBB/PM HEART Score: Age: > or = 65 Years HEART Score: Risk Factors for Atherosclerotic Disease: 1 or 2 Risk Factors HEART Score: Troponin: < or = Normal Limit Total HEART Score:: 4 Progress - PLAN OF CARE/RESULTS Progress/Plan/Lab Results: 07/08/19 13:14 Blood Culture - Final Blood NO GROWTH AFTER 5 DAYS Orders Category Date Time Status Admit - [facility] Routine AdmDCTranf 07/08/19 15:25 Active Activity - Up with Assistance ORDERED Care 07/08/19 15:25 Active Cardiac Monitoring DIRECTED Care 07/08/19 12:00 Completed IV Insertion ORDERED Care 07/08/19 12:00 Completed Intake and Output-Strict ORDERED Care 07/08/19 15:25 Active Notify MD of + Sepsis Screen NOW Care 07/08/19 12:00 Completed Notify Physician As Ordered Care 07/08/19 12:00 Active Resuscitation Status Routine Care 07/08/19 13:21 Completed Vital Signs Order Q 8-HR ASSESS Care 07/08/19 15:25 Completed Z-Document. for Tele Applied ORDERED Care 07/08/19 15:27 Completed Regular Diet Diet 07/08/19 15:27 Completed CHEST-1 VIEW [RAD] Stat Exams 07/08/19 12:00 Completed BLOOD CULTURE [BLDCUL] Stat Lab 07/08/19 16:57 Completed CBC WITH DIFF [HEME] Routine Lab 07/09/19 07:25 Completed CBC WITH DIFF [HEME] Stat Lab 07/08/19 13:14 Completed CK PROFILE [SP CHEM] Stat Lab 07/08/19 13:14 Completed COMPREHENSIVE METABOLIC PANEL [CHEM] Routine Lab 07/09/19 07:25 Completed COMPREHENSIVE METABOLIC PANEL [CHEM] Stat Lab 07/08/19 13:14 Completed LACTATE, PLASMA [CHEM] Lab 07/08/19 13:14 Completed LACTATE, PLASMA [CHEM] Lab 07/08/19 15:05 Completed LACTATE, PLASMA [CHEM] Lab 07/08/19 18:51 Completed PROTIME WITH INR [COAG] Stat Lab 07/08/19 13:14 Completed PTT [COAG] Stat Lab 07/08/19 13:14 Completed TROPONIN T HIGH SENSITIVITY Stat Lab 07/08/19 13:14 Completed URINALYSIS W/POSS RFLX CULT [URINALYSIS] Stat Lab 07/08/19 13:21 Completed Albuterol 2.5MG/Ipratrop 0.5MG [Duoneb (A & A)] Med 07/08/19 15:31 Discontinued 3 ml INH Q2H PRN PRN Albuterol 2.5MG/Ipratrop 0.5MG [Duoneb (A & A)] Med 07/08/19 19:30 Discontinued 3 ml INH RTQ4H Albuterol 2.5MG/Ipratrop 0.5MG [Duoneb (A & A)] Med 07/08/19 12:21 Discontinued 9 ml INH NOW ONE Guaifenesin/Codeine [Robitussin-AC] Med 07/08/19 15:43 Discontinued 10 ml PO Q4-6H PRN PRN Hydrocodone/APAP 5 mg/325 mg [Kite-5] Med 07/08/19 13:33 Discontinued 1 each PO NOW ONE Ketorolac [Toradol] Med 07/08/19 15:45 Discontinued 15 mg IV Q6H Methylprednisolone Sod Succ [Solu-Medrol] Med 07/08/19 12:21 Discontinued 125 mg IV NOW ONE Methylprednisolone Sod Succ [Solu-Medrol] Med 07/08/19 23:00 Discontinued 60 mg IV Q8H Aerosol Treatments Routine Oth 07/08/19 12:21 Completed Aerosol Treatments Routine Oth 07/08/19 15:31 Completed Aerosol Treatments Stat Oth 07/08/19 12:21 Completed Oxygen Device Stat Oth 07/08/19 12:00 Completed Telemetry [OM.EQ] Routine Oth 07/08/19 15:25 Active EKG [EKG] Stat Ther 07/08/19 11:51 Draft Transfer/Admit Order [TRANSFER] Routine Transfer 07/08/19 15:44 Completed Result Diagrams: 07/09/19 07:25 07/09/19 07:25 - EKG 1 Time of EKG reading by physician:: 11:51 EKG Read and Signed by:: Donaldo Roach EKG Interpretation (*Must complete 3 of following elements*): Abnormal Rate: 103 Rhythm: sinus tachycardia with premature atrial complexes [place]: normal [place] Interval: normal Comments: nonspecific ST and T wave abnormality. - XRAY 1 XRAY Study: Chest Impression: See EMR Report (CHEST-1 VIEW - 07/08/2019 INDICATION: SOB COMPARISON: 05/11/2019 FINDINGS: There is probable COPD. There is some linear scarring in the lung bases. No infiltrates or edema. No pneumothorax or pleural effusion. Heart size is normal. IMPRESSION: COPD with pulmonary scarring. No acute process. Electronically signed by Henri Estrada 07/08/2019 12:28 PM 07/08/19 1228 Interpreting Physician: Henri Estrada MD Dictated Date/Time: 07/08/19 1227 cc: Donaldo Roach MD; None,PCP) - CONSULTS/PCP/HOSPITALIST Notification #1 *Consult/PCP/Hospitalist*: OTIS Anderson for Hospitalist Time Discussed: 14:31 Reason/Comments: Dr. Roach consulted with Monica about patient. Consult Disposition: Will see in ED, Admit Departure - Departure Date of Disposition Decision: 07/08/19 Time of Disposition Decision: 14:32 DIAGNOSIS: Hypoxemia, COPD (chronic obstructive pulmonary disease) Disposition: ADMITTED INPATIENT 09 Certified Medical Emergency: Emergent Condition: Stable - Critical Care Note This patient required my direct & personal management of CC.: Yes Total Time (mins): 35 Critical Care Statement: This patient required my direct personal management to treat or rule out processes, the absence of which, could potentiallly result in sudden, clinically significant life or limb threatening deterioration. Attestation - Physician/ MICAH Attestation Patient care was provided by Advanced Practice Provider:: No The physician spent face to face time with patient:: Yes Advanced Practice Provider documentation review:: Supervising physician onsite and consulted in the evaluation and care of this patient. The physician did have a face to face encounter with the patient. This chart was documented by the indicated scribe, (Kourtney Callahan Scribe) and accurately reflects the services I performed and decisions made by me, Donaldo Roach MD, as attested by the provider's signature.
== END 2019-07-09 17:58 | disposition hospice, home (50) ==
LOC: ED 11:42 → INTOOBSV 16:43 → 3N 16:43
PROVIDERS: ATTEND Internal Medicine